=== PATIENT | female | born 1995 | race Caucasian/White ===

== ENCOUNTER → 2016-08-28 | Outpatient (CLI) | payer OTHER ==
--- NOTE | 2016-08-28 09:25 | US ---
Ultrasound Pelvis Complete (Transabdominal and Endovaginal) Including Duplex/Doppler Imaging History: N 92.6, irregular menstruation, irregular bleeding Technique: Transabdominal and endovaginal ultrasound images were obtained. Endovaginal images obtain ed for better evaluation of the uterine myometrium and adnexa. Duplex/Doppler imaging of adnexa. Findings: Uterus measures 6.4 x 4.2 x 3.4 cm. Endometrial thickness is 4 mm. No definite uterine lei omyomata. Right ovary measures 2.7 x 1.5 x 1.8 cm. Left ovary measures 3 x 1.2 x 1.6 cm. Normal follicles in chidi th ovaries. No adnexal masses. No significant free fluid in the pelvis. Color Doppler flow to both o varies without torsion. Impression: Normal ultrasound pelvis.
== END ==
LOC: CIMAGING 08:13
PROVIDERS: ATTEND Midwife
DX: N92.6 Irregular menstruation, unspecified (principal)
CPT/HCPCS: 76856-PO

== ENCOUNTER 2017-02-04 18:48 | Emergency (ER) | payer OTHER ==
[2017-02-04 18:52] VITALS: RESP 16
[2017-02-04] MEDS ORDERED: ONDANSETRON 4 MG/2 ML VIAL IVP ONE (19:07)
[2017-02-04] MEDS ORDERED: NS 1,000 ML IV ONE (19:07)
--- NOTE | 2017-02-04 19:21 | EDPHY ---
H & P Time Seen by Provider: 02/04/17 19:07 HPI/ROS: CHIEF COMPLAINT: Nausea, vomiting, diarrhea. HISTORY OF PRESENT ILLNESS: The patient is a 21-year-old female presenting with nausea and vomiting that started around 5pm yesterday. She has been unable to keep down food or fluids for the past 24 hours. Associated with multiple episodes of diarrhea, last episode was this morning. No associated abd pain or fever. She is currently on her menstrual period. REVIEW OF SYSTEMS: A comprehensive 10 point review of systems is otherwise negative aside from elements mentioned in the history of present illness. Past Medical/Surgical History: Denies. Social History: Occasional alcohol use. Rare smoking. Smoking Status: Never smoked Physical Exam: General Appearance: Alert, pleasant, nontoxic Eyes: Pupils equal and round, no conjunctival pallor or injection ENT, Mouth: Mucous membranes moist Neck: Normal inspection Respiratory: Lungs are clear to auscultation Cardiovascular: Regular rate and rhythm Gastrointestinal: Mild epigastric tenderness Neurological: A&O, nonfocal, normal gait Skin: Warm and dry, no rash Extremities: Nontender, no pedal edema Psychiatric: Mood and affect normal Constitutional: Initial Vital Signs Temperature (C) 36.7 C 02/04/17 18:51 Heart Rate 92 02/04/17 18:51 Respiratory Rate 16 02/04/17 18:51 Blood Pressure 126/62 H 02/04/17 18:51 O2 Sat (%) 98 02/04/17 18:51 O2 Delivery Mode Room Air Allergies/Adverse Reactions: No Known Allergies Allergy (Unverified 10/01/14 12:46) Home Medications: Medication Instructions Recorded Ethinyl Estradiol/Drospirenone 10/01/14 [Gianvi 3 mg-0.02 mg Tablet] predniSONE 1 each PO DAILY #21 tab 10/01/14 Medical Decision Making ED Course/Re-evaluation: This patient presents with N/V/D, c/w gastroenteritis. Low suspicioun for alternative etiology. IV was established, patient received IV fluids and 4mg Zofran. Plan to reevaluate. 8:20 p.m.: Patient was able to tolerate oral fluids well. Abdomen is nontender on reexamination. Plan to discharge patient home. Differential Diagnosis: includes though not limited to appy, wang, severe dehydration, SBO. - Data Points Medications Given: Discontinued Medications Sodium Chloride (Ns) 1,000 mls @ 0 mls/hr IV ONCE ONE; Wide Open PRN Reason: Protocol Stop: 02/04/17 19:08 Last Admin: 02/04/17 19:15 Dose: 1,000 mls Ondansetron HCl (Zofran) 4 mg IVP EDNOW ONE Stop: 02/04/17 19:08 Last Admin: 02/04/17 19:15 Dose: 4 mg Ondansetron HCl (Zofran Odt 4 Mg Prepack#2) 1 btl TAKEHOME EDNOW ONE Stop: 02/04/17 19:24 Last Admin: 02/04/17 20:35 Dose: 1 btl Departure - Departure Disposition: Home, Routine, Self-Care Clinical Impression: Vomiting Qualifiers: Vomiting type: unspecified Vomiting Intractability: non-intractable Nausea presence: with nausea Qualified Code(s): R11.2 - Nausea with vomiting, unspecified Condition: Good Instructions: Ondansetron (By mouth), Acute Nausea and Vomiting (ED) Additional Instructions: I recommend liquids only with gradual diet advancement for the next 24 hours. Take Zofran as prescribed for nausea and vomiting. Return to the Emergency Department with severe abdominal pain, intractable vomiting, or worsening of your condition. Followup with your primary care physician as needed. Referrals: Tiny Tapia MD [Primary Care Provider] - As per Instructions Report Scribed for: Yulissa Feng Report Scribed by: Anabel Clemente Date of Report: 02/04/17 Time of Report: 19:21 Physician Review and Approval Statement: 02/04/17 19:21 Portions of this note were transcribed by a biomedical specialist. I personally performed the history, physical exam, and medical decision-making; and confirmed the accuracy of the information in the transcribed note.
[2017-02-04] MEDS ORDERED: ONDANSETRON 4MG PREPACK#2 BTL TAKEHOME ONE (19:23)
[2017-02-04 20:42] VITALS: BP 115/68; PULSE 74; TEMP 97.9; O2SAT 96
== END 2017-02-04 20:42 | disposition home or self-care (01) ==
DX: R11.2 Nausea with vomiting, unspecified (principal); E86.9 Volume depletion, unspecified
CPT/HCPCS: 96374; J2405

== ENCOUNTER → 2017-06-11 | Outpatient (CLI) | payer OTHER | LOC: BMCIMAGING 10:01 | PROVIDERS: ATTEND Family Medicine | DX: R06.02 Shortness of breath (principal) ==